=== PATIENT | female | born 2000 | race Caucasian/White ===

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

== ENCOUNTER 2018-02-23 00:32 | Emergency (ER) | payer OTHER ==
[~2018-02-23] VITALS: Ht 170.2 cm; Wt 93.9 kg
[2018-02-23 00:43] VITALS: Ht 170.2 cm; Wt 93.9 kg
[2018-02-23 02:21] VITALS: BP 147/83
== END 2018-02-23 02:21 | disposition home or self-care (01) ==
LOC: ED 00:32
DX: R07.9 Chest pain, unspecified (principal); R42 Dizziness and giddiness
CPT/HCPCS: Q0092

== ENCOUNTER 2018-10-19 22:07 | Emergency (ER) | payer OTHER ==
[~2018-10-19] VITALS: Ht 170.2 cm; Wt 94.3 kg
[2018-10-19 22:28] VITALS: Ht 170.2 cm; Wt 94.3 kg
[2018-10-20 00:19] VITALS: BP 140/82
== END 2018-10-20 00:41 | disposition home or self-care (01) ==
LOC: ED 22:07
DX: N76.0 Acute vaginitis (principal); M32.9 Systemic lupus erythematosus, unspecified
CPT/HCPCS: 87491; 87591; J0696

== ENCOUNTER 2019-04-14 01:18 | Emergency (ER) | payer SELFPAY ==
[~2019-04-14] VITALS: Ht 170.2 cm; Wt 90.7 kg
[2019-04-14 01:23] VITALS: BP 147/99; Ht 170.2 cm; Wt 90.7 kg
== END 2019-04-14 03:20 | disposition left against medical advice (07) ==
LOC: ED 01:18
DX: Z53.21 Procedure and treatment not carried out due to patient leaving prior to being seen by health care provider (principal)

== ENCOUNTER 2019-05-29 19:21 | Emergency (ER) | payer OTHER ==
[~2019-05-29] VITALS: Ht 170.2 cm; Wt 88.9 kg
[2019-05-29 19:32] VITALS: Ht 170.2 cm; Wt 88.9 kg
[2019-05-29 20:44] LABS: AMPHETAMINE QUAL UR NONE DETECTED (See below)
[2019-05-29 20:44] LABS: BASOPHIL % 0.5 % (0-2); PLATELET COUNT 285 x10^3mcL (130-400); RED CELL DISTRIBUTION WIDTH 13.1 % (11.5-14.5)
[2019-05-29 20:47] LABS: CARBON DIOXIDE 24.7 mmol/L (21-32); CHLORIDE SERUM 109 mmol/L (98-107); CREATININE SERUM 0.7 mg/dL (0.6-1.0); GFR1 > 60 mL/min; GLUCOSE SERUM 89 mg/dL (74-106); POTASSIUM SERUM 3.6 mmol/L (3.5-5.1); SODIUM SERUM 143 mmol/L (136-145)
[2019-05-29 20:51] LABS: ALBUMIN 3.3 g/dL (3.4-5.0); ALKALINE PHOSPHATASE 47 U/L (46-116); ALT/SGPT 16 U/L (14-59); AST/SGOT 13 U/L (15-37); BILIRUBIN TOTAL 0.14 mg/dL (0.20-1.00); MAGNESIUM 1.8 mg/dL (1.8-2.4)
[2019-05-29 21:26] LABS: microscopic required? YES; urine erythrocyte 3+ (NEGATIVE)
[2019-05-29 22:19] VITALS: BP 128/78
== END 2019-05-29 22:19 | disposition home or self-care (01) ==
LOC: ED 19:21
PROVIDERS: Emergency Medicine
DX: R42 Dizziness and giddiness (principal); R31.29 Other microscopic hematuria
CPT/HCPCS: 36415

== ENCOUNTER 2019-06-12 17:50 | Emergency (ER) | payer OTHER ==
[~2019-06-12] VITALS: Ht 170.2 cm; Wt 88.5 kg
[2019-06-12 17:52] VITALS: Ht 170.2 cm; Wt 88.5 kg
[2019-06-12 19:07] VITALS: BP 122/65
== END 2019-06-12 19:07 | disposition home or self-care (01) ==
LOC: ED 17:50
DX: R10.9 Unspecified abdominal pain (principal); R11.0 Nausea
CPT/HCPCS: J1885

== ENCOUNTER 2019-08-01 01:37 | Emergency (ER) | payer OTHER ==
[~2019-08-01] VITALS: Ht 170.2 cm; Wt 90.0 kg
[2019-08-01 01:41] VITALS: BP 143/92; Ht 170.2 cm; Wt 90.0 kg
== END 2019-08-01 03:06 | disposition home or self-care (01) ==
LOC: ED 01:37
DX: H10.33 Unspecified acute conjunctivitis, bilateral (principal); M32.9 Systemic lupus erythematosus, unspecified; J30.2 Other seasonal allergic rhinitis

== ENCOUNTER 2019-08-22 02:50 | Emergency (ER) | payer OTHER ==
[~2019-08-22] VITALS: Ht 170.2 cm; Wt 91.8 kg
[2019-08-22 02:55] VITALS: Ht 170.2 cm; Wt 91.8 kg
[2019-08-22 04:21] LABS: BASOPHIL % 0.4 % (0-2); PLATELET COUNT 309 x10^3mcL (130-400); RED CELL DISTRIBUTION WIDTH 13.6 % (11.5-14.5)
[2019-08-22 04:41] LABS: CALCIUM 8.3 mg/dL (8.5-10.1); CARBON DIOXIDE 24.7 mmol/L (21-32); CHLORIDE SERUM 106 mmol/L (98-107); CREATININE SERUM 0.7 mg/dL (0.6-1.0); GFR1 > 60 mL/min; GLUCOSE SERUM 89 mg/dL (74-106); POTASSIUM SERUM 3.5 mmol/L (3.5-5.1); SODIUM SERUM 141 mmol/L (136-145)
[2019-08-22 04:45] LABS: ALBUMIN 2.8 g/dL (3.4-5.0); ALKALINE PHOSPHATASE 56 U/L (46-116); AST/SGOT 23 U/L (15-37); LIPASE 101 IU/L (73-393); TOTAL PROTEIN, SERUM 7.2 g/dL (6.4-8.2)
[2019-08-22 04:59] LABS: ALT/SGPT 27 U/L (14-59)
[2019-08-22 06:00] VITALS: BP 126/96
== END 2019-08-22 06:00 | disposition home or self-care (01) ==
LOC: ED 02:50
PROVIDERS: Emergency Medicine
DX: R10.811 Right upper quadrant abdominal tenderness (principal); R31.29 Other microscopic hematuria; L93.0 Discoid lupus erythematosus
CPT/HCPCS: 36415; J1885; Q0092

== ENCOUNTER 2019-08-24 19:13 | Emergency (ER) | payer OTHER ==
[~2019-08-24] VITALS: Ht 170.2 cm; Wt 91.2 kg
[2019-08-24 19:17] VITALS: Ht 170.2 cm; Wt 91.2 kg
[2019-08-24 23:45] VITALS: BP 128/73
== END 2019-08-24 23:45 | disposition home or self-care (01) ==
LOC: ED 19:13
DX: S09.8XXA Other specified injuries of head, initial encounter (principal); R51 Headache; R11.0 Nausea; M32.9 Systemic lupus erythematosus, unspecified; W22.8XXA Striking against or struck by other objects, initial encounter; Y93.89 Activity, other specified; Y92.89 Other specified places as the place of occurrence of the external cause; Y99.8 Other external cause status
CPT/HCPCS: Q0162

== ENCOUNTER 2019-09-06 20:23 | Emergency (ER) | payer OTHER ==
[~2019-09-06] VITALS: Ht 170.2 cm; Wt 90.7 kg
[2019-09-06 20:41] VITALS: Ht 170.2 cm; Wt 90.7 kg
[2019-09-06 21:20] LABS: BASOPHIL % 0.4 % (0-2); PLATELET COUNT 332 x10^3mcL (130-400); RED CELL DISTRIBUTION WIDTH 13.7 % (11.5-14.5)
[2019-09-06 21:32] LABS: ALBUMIN 2.6 g/dL (3.4-5.0); ALKALINE PHOSPHATASE 60 U/L (46-116); ALT/SGPT 12 U/L (14-59); AST/SGOT 11 U/L (15-37); BILIRUBIN TOTAL 0.13 mg/dL (0.20-1.00); CHLORIDE SERUM 108 mmol/L (98-107); CREATININE SERUM 0.6 mg/dL (0.6-1.0); GFR1 > 60 mL/min; GLUCOSE SERUM 91 mg/dL (74-106); LIPASE 79 IU/L (73-393); POTASSIUM SERUM 3.4 mmol/L (3.5-5.1); SODIUM SERUM 142 mmol/L (136-145); TOTAL PROTEIN, SERUM 6.9 g/dL (6.4-8.2)
[2019-09-06 21:36] LABS: CALCIUM 8.4 mg/dL (8.5-10.1)
[2019-09-07 00:36] VITALS: BP 114/57
== END 2019-09-07 00:36 | disposition home or self-care (01) ==
LOC: ED 20:23
PROVIDERS: Emergency Medicine
DX: R10.10 Upper abdominal pain, unspecified (principal); R11.0 Nausea; M32.9 Systemic lupus erythematosus, unspecified
CPT/HCPCS: 36415; J0500

== ENCOUNTER 2019-10-06 19:09 | Emergency (ER) | payer OTHER ==
[~2019-10-06] VITALS: Ht 170.2 cm; Wt 91.6 kg
[2019-10-06 19:12] VITALS: Ht 170.2 cm; Wt 91.6 kg
[2019-10-06 21:16] LABS: BASOPHIL % 0.3 % (0-2); PLATELET COUNT 342 x10^3mcL (130-400); RED CELL DISTRIBUTION WIDTH 13.1 % (11.5-14.5)
[2019-10-06 21:22] LABS: CALCIUM 8.5 mg/dL (8.5-10.1); CARBON DIOXIDE 26.5 mmol/L (21-32); CHLORIDE SERUM 106 mmol/L (98-107); GFR1 > 60 mL/min; GLUCOSE SERUM 86 mg/dL (74-106); POTASSIUM SERUM 3.7 mmol/L (3.5-5.1); SODIUM SERUM 142 mmol/L (136-145)
[2019-10-06 21:26] LABS: ALKALINE PHOSPHATASE 56 U/L (46-116); ALT/SGPT 25 U/L (14-59); AST/SGOT 20 U/L (15-37); BILIRUBIN TOTAL 0.2 mg/dL (0.20-1.00); TOTAL PROTEIN, SERUM 7.5 g/dL (6.4-8.2)
[2019-10-06 21:27] LABS: ALBUMIN 2.9 g/dL (3.4-5.0)
[2019-10-06 21:57] LABS: ERYTHROCYTE SED RATE 71 mm/hr (0-20)
[2019-10-06 22:51] VITALS: BP 132/68
== END 2019-10-06 22:51 | disposition home or self-care (01) ==
LOC: ED 19:09
PROVIDERS: Emergency Medicine
DX: R53.1 Weakness (principal); R42 Dizziness and giddiness; R51 Headache; R20.0 Anesthesia of skin; M32.9 Systemic lupus erythematosus, unspecified
CPT/HCPCS: 36415

== ENCOUNTER 2019-11-28 18:57 | Emergency (ER) | payer OTHER ==
[~2019-11-28] VITALS: Ht 170.2 cm; Wt 93.9 kg
[2019-11-28 19:28] VITALS: Ht 170.2 cm; Wt 93.9 kg
[2019-11-28 21:31] LABS: BASOPHIL % 0.6 % (0-2); PLATELET COUNT 342 x10^3mcL (130-400); RED CELL DISTRIBUTION WIDTH 13.2 % (11.5-14.5)
[2019-11-28 21:43] LABS: CALCIUM 8.8 mg/dL (8.5-10.1); CARBON DIOXIDE 27.2 mmol/L (21-32); CHLORIDE SERUM 105 mmol/L (98-107); CREATININE SERUM 0.6 mg/dL (0.6-1.0); GFR1 > 60 mL/min; GLUCOSE SERUM 89 mg/dL (74-106); POTASSIUM SERUM 3.8 mmol/L (3.5-5.1); SODIUM SERUM 140 mmol/L (136-145)
[2019-11-28 21:48] LABS: ALKALINE PHOSPHATASE 47 U/L (46-116); ALT/SGPT 21 U/L (14-59); AST/SGOT 17 U/L (15-37); BILIRUBIN TOTAL 0.1 mg/dL (0.20-1.00); TOTAL PROTEIN, SERUM 7.3 g/dL (6.4-8.2)
[2019-11-28 21:58] LABS: ALBUMIN 2.8 g/dL (3.4-5.0)
[2019-11-29 01:35] VITALS: BP 130/88
== END 2019-11-29 01:35 | disposition home or self-care (01) ==
LOC: ED 18:57
PROVIDERS: Emergency Medicine
DX: G44.209 Tension-type headache, unspecified, not intractable (principal); M79.10 Myalgia, unspecified site; R42 Dizziness and giddiness; M32.9 Systemic lupus erythematosus, unspecified
CPT/HCPCS: 36415; 87804

== ENCOUNTER 2019-12-29 14:05 | Emergency (ER) | payer OTHER ==
[~2019-12-29] VITALS: Ht 170.2 cm; Wt 95.3 kg
[2019-12-29 14:12] VITALS: Ht 170.2 cm; Wt 95.3 kg
[2019-12-29 15:14] VITALS: BP 138/72
== END 2019-12-29 15:15 | disposition home or self-care (01) ==
LOC: ED 14:05
DX: R07.89 Other chest pain (principal); R06.2 Wheezing

== ENCOUNTER 2020-02-13 22:44 | Emergency (ER) | payer OTHER ==
[~2020-02-13] VITALS: Ht 172.7 cm; Wt 98.0 kg
[2020-02-13 22:51] VITALS: Ht 172.7 cm; Wt 98.0 kg
[2020-02-13 23:20] LABS: BASOPHIL % 0.6 % (0-2); PLATELET COUNT 383 x10^3mcL (130-400)
[2020-02-13 23:44] LABS: CALCIUM 9.1 mg/dL (8.5-10.1); CARBON DIOXIDE 27.5 mmol/L (21-32); CHLORIDE SERUM 106 mmol/L (98-107); CREATININE SERUM 0.8 mg/dL (0.6-1.0); GFR1 > 60 mL/min; GLUCOSE SERUM 101 mg/dL (74-106); POTASSIUM SERUM 4.2 mmol/L (3.5-5.1); SODIUM SERUM 142 mmol/L (136-145)
[2020-02-13 23:49] LABS: ALKALINE PHOSPHATASE 47 U/L (46-116); ALT/SGPT 26 U/L (14-59); AST/SGOT 20 U/L (15-37); BILIRUBIN TOTAL 0.1 mg/dL (0.20-1.00); TOTAL PROTEIN, SERUM 6.8 g/dL (6.4-8.2)
[2020-02-13 23:52] LABS: ALBUMIN 2.1 g/dL (3.4-5.0)
[2020-02-14 01:25] VITALS: BP 141/93
== END 2020-02-14 01:25 | disposition home or self-care (01) ==
LOC: ED 22:44
PROVIDERS: Emergency Medicine
DX: N23 Unspecified renal colic (principal); J45.909 Unspecified asthma, uncomplicated
CPT/HCPCS: 36415; Q0092

== ENCOUNTER 2020-10-13 03:12 | Emergency (ER) | payer OTHER ==
[~2020-10-13] VITALS: Ht 170.2 cm; Wt 99.8 kg
[2020-10-13 03:30] VITALS: Ht 170.2 cm; Wt 99.8 kg
[2020-10-13 05:04] VITALS: BP 154/99
== END 2020-10-13 05:04 | disposition home or self-care (01) ==
LOC: ED 03:12
DX: R07.89 Other chest pain (principal); M25.512 Pain in left shoulder; M79.10 Myalgia, unspecified site; J45.909 Unspecified asthma, uncomplicated